=== PATIENT | female | born 1995 | race African-American/Black ===

== ENCOUNTER 2018-04-30 12:57 | Emergency (ER) | payer MEDICAID ==
[~2018-04-30] VITALS: Ht 162.6 cm; Wt 77.6 kg
--- NOTE | 2018-04-30 13:11 | NUR ---
ED Nurse Note: Pt came in due to lower abd pain with cramping that radiates to her back x 2 days. Pt is 17 weeks . Denies any vaginal bleeding. Pt states she does not have a regular OB [place] d/t [place]. Pt is AAO x4, ambulatory with non labored breathing.
--- NOTE | 2018-04-30 13:25 | Emergency Room Report ---
History of Present Illness General Chief Complaint: Complications Source: Patient Present Illness HPI 22-year-old female presents to the emergency department complaining of 7 out of 10 in severity lower pelvic cramping pain that she describes as aching 3 days. Patient reports increase in her symptoms. Patient states that she is approximately 17 weeks . Patient reports that her last OB visit was in [facility] and they performed initial ultrasound which established IUP. Patient states that she has not followed up since. Patient is with a history of 2 previous surgical abortions. Patient reports some nausea she states that she had really severe morning sickness but those symptoms have for the most part resolved. Patient denies constipation, diarrhea, fevers, chills or dysuria. Patient denies vaginal discharge, or genital lesions/1 tender lymph nodes. Patient reports increase in urinary frequency she also states she has a history of ovarian cysts. patient denies aggravating or relieving factors she states she just took some Tylenol prior to arrival. Denies chest pain, shortness of breath, dizziness, near syncope or sudden severe headache. Allergies: Coded Allergies: No Known Allergies (Unverified , 04/30/18) Patient History Past Medical History: see triage record Past Surgical History: none Pertinent Family History: none Now: Yes : 3 Para: 0 Reviewed Nursing Documentation: PMH: Agreed; PSxH: Agreed Nursing Documentation-PMH Past Medical History: No Stated History Review of Systems All Other Systems: negative except mentioned in HPI Physical Exam Vital Signs Date Time Temp Pulse Resp B/P (MAP) Pulse Ox O2 Delivery O2 Flow Rate FiO2 04/30/18 13:01 98.2 102 16 128/89 100 Sp02 EP Interpretation: reviewed, normal General Appearance: no apparent distress, alert, GCS 15, non-toxic Head: normocephalic, atraumatic Eyes: bilateral eye normal inspection, bilateral eye PERRL ENT: hearing grossly normal, normal voice Neck: full range of motion Respiratory: lungs clear, normal breath sounds, speaking full sentences Cardiovascular #1: regular rate, rhythm Gastrointestinal: normal bowel sounds, non tender, soft, non-distended, no guarding, other - No appreciable tenderness on palpation. Rectal: deferred Genitourinary: normal inspection, no CVA tenderness Musculoskeletal: back normal, gait/station normal, normal range of motion, non- tender Neurologic: alert, oriented x3, responsive, motor strength/tone normal, sensory intact, speech normal, grossly normal Psychiatric: judgement/insight normal Skin: normal color, no rash, warm/dry, well hydrated Lymphatic: no adenopathy Medical Decision Making PA Attestation Dr. Schultz is my supervising Physician whom patient management has been discussed with. Diagnostic Impression: Primary Impression: Abdominal pain during Qualified Codes: O26.892 - Other specified related conditions, second trimester; R10.9 - Unspecified abdominal pain Additional Impressions: UTI (urinary tract infection) Qualified Codes: N30.01 - Acute cystitis with hematuria Ovarian cyst during Qualified Codes: O34.82 - Maternal care for other abnormalities of pelvic organs, second trimester; N83.209 - Unspecified ovarian cyst, unspecified side ER Course 22-year-old female presents to the emergency department complaining of 7 out of 10 in severity lower pelvic cramping pain that she describes as aching 3 days. Patient reports increase in her symptoms. Patient states that she is approximately 17 weeks . Patient reports that her last OB visit was in [facility] and they performed initial ultrasound which established IUP. Patient states that she has not followed up since. Patient is with a history of 2 previous surgical abortions. Patient reports some nausea she states that she had really severe morning sickness but those symptoms have for the most part resolved. Patient denies constipation, diarrhea, fevers, chills or dysuria. Patient denies vaginal discharge, or genital lesions/1 tender lymph nodes. Patient reports increase in urinary frequency she also states she has a history of ovarian cysts. patient denies aggravating or relieving factors she states she just took some Tylenol prior to arrival. Denies chest pain, shortness of breath, dizziness, near syncope or sudden severe headache. Ddx considered but are not limited to: ovarian cyst, UTI, Fibroid, ectopic , Fibroid, Spontaneous , Vital signs: are WNL, pt. is afebrile H&PE are most consistent with: ORDERS: -CBC: unremarkable -CMP: unremarkable -Lipase: WNL -Serum Hcg Quant: 9,430 -Pelvic US complete- normal intrauterine estimated at 17 weeks gestation. Left ovarian cyst ~4cm ---Per official radiology report- Please see report for specific details. ED INTERVENTIONS: None at this time. DISCHARGE: At this time pt. is stable for d/c to home. Will provide printed patient care instructions, and any necessary prescriptions. Care plan and follow up instructions have been discussed with the patient prior to discharge. Labs Test 04/30/18 13:09 04/30/18 13:25 Urine Color Yellow Urine Appearance Slightly cloudy Urine pH 6 (4.5-8.0) Urine Specific [place] 1.020 (1.005-1.035) Urine Protein 1+ (NEGATIVE) Urine Glucose (UA) Negative (NEGATIVE) Urine Ketones Negative (NEGATIVE) Urine Blood 1+ (NEGATIVE) Urine Nitrite Negative (NEGATIVE) Urine Bilirubin Negative (NEGATIVE) Urine Urobilinogen Normal MG/DL (0.0-1.0) Urine Leukocyte Esterase 3+ (NEGATIVE) Urine RBC 0-2 /HPF (0 - 2) Urine WBC 5-10 /HPF (0 - 2) Urine Squamous Epithelial Cells Few /LPF (NONE/OCC) Urine Bacteria Occasional /HPF (NONE) White Blood Count 11.6 K/UL (4.8-10.8) Red Blood Count 4.53 M/UL (4.20-5.40) Hemoglobin 13.0 G/DL (12.0-16.0) Hematocrit 38.9 % (37.0-47.0) Mean Corpuscular Volume 86 FL (80-99) Mean Corpuscular Hemoglobin 28.6 PG (27.0-31.0) Mean Corpuscular Hemoglobin Concent 33.3 G/DL (32.0-36.0) Red Cell Distribution Width 12.2 % (11.6-14.8) Platelet Count 185 K/UL (150-450) Mean Platelet Volume 8.5 FL (6.5-10.1) Neutrophils (%) (Auto) 82.7 % (45.0-75.0) Lymphocytes (%) (Auto) 11.2 % (20.0-45.0) Monocytes (%) (Auto) 4.6 % (1.0-10.0) Eosinophils (%) (Auto) 0.7 % (0.0-3.0) Basophils (%) (Auto) 0.8 % (0.0-2.0) Sodium Level 135 MMOL/L (136-145) Potassium Level 4.0 MMOL/L (3.5-5.1) Chloride Level 103 MMOL/L (98-107) Carbon Dioxide Level 25 MMOL/L (21-32) Anion Gap 7 mmol/L (5-15) Blood Urea Nitrogen 7 mg/dL (7-18) Creatinine 0.9 MG/DL (0.55-1.30) Estimat Glomerular Filtration Rate > 60 mL/min (>60) Glucose Level 94 MG/DL (74-106) Calcium Level 9.7 MG/DL (8.5-10.1) Total Bilirubin 0.3 MG/DL (0.2-1.0) Aspartate Amino Transf (AST/SGOT) 26 U/L (15-37) Alanine Aminotransferase (ALT/SGPT) 64 U/L (12-78) Alkaline Phosphatase 58 U/L (46-116) Total Protein 7.2 G/DL (6.4-8.2) Albumin 3.5 G/DL (3.4-5.0) Globulin 3.7 g/dL Albumin/Globulin Ratio 0.9 (1.0-2.7) Lipase 136 U/L (73-393) Human Chorionic Gonadotropin, Quant 9430 mIU/mL (1-6) CT/MRI/US Diagnostic Results CT/MRI/US Diagnostic Results : Imaging Test Ordered: OB US Impression NORMAL IUP 17 Weeks 1 day, normal movement, Left ovarian cyst. ---Per official radiology report- Please see report for specific details. Last Vital Signs Date Time Temp Pulse Resp B/P (MAP) Pulse Ox O2 Delivery O2 Flow Rate FiO2 04/30/18 13:01 98.2 102 16 128/89 100 Disposition: HOME, SELF-CARE Condition: Stable Scripts Acetaminophen* (TYLENOL EXTRA STRENGTH*) 500 Mg Tablet 500 MG ORAL Q6H, #30 TAB 0 Refills Prov: Jacquelyn Jefferson 04/30/18 Nitrofurantoin Monohyd/M-Cryst* (MACROBID 100 MG*) 100 Mg Capsule 100 MG ORAL EVERY 12 HOURS for 5 Days, #10 CAP Prov: Jacquelyn Jefferson 04/30/18 Referrals: Marty Abarca MD Patient Instructions: Ovarian Cyst, [id number], Urinary Tract Infection, Easy -to-Read Additional Instructions: Take medications as directed. Follow up with a OBGYN within 3 days, even if your symptoms have resolved. Return sooner to ED if new symptoms occur, or current symptoms become worse. - Please note that this Emergency Department Report was dictated using [employer] writer technology software, occasionally this can lead to erroneous entry secondary to interpretation by the dictation equipment. Jacquelyn Jefferson Apr 30, 2018 13:24
--- NOTE | 2018-04-30 13:27 | NUR ---
ED Nurse Note: Blood/urine sent.
--- NOTE | 2018-04-30 13:28 | NUR ---
ED Nurse Note: Pt taken to US.
[2018-04-30 13:36] LABS: APPEARANCE,URINE SLIGHTLY CLOUDY; BILIRUBIN, URINE NEGATIVE (NEGATIVE); COLOR,URINE YELLOW; GLUCOSE, URINE (UA) NEGATIVE (NEGATIVE); KETONES,URINE NEGATIVE (NEGATIVE); LEUKOCYTE ESTERASE ,URINE 3+ (NEGATIVE); NITRITE,URINE NEGATIVE (NEGATIVE); PH,URINE 6 (4.5-8.0); PROTEIN,URINE 1+ (NEGATIVE); UROBILINOGEN,URINE NORMAL MG/DL (0.0-1.0)
[2018-04-30 13:39] LABS: BASOPHILS % (AUTO) 0.8 % (0.0-2.0); EOSINOPHILS % (AUTO) 0.7 % (0.0-3.0); HEMATOCRIT 38.9 % (37.0-47.0); LYMPHOCYTES % (AUTO) 11.2 % (20.0-45.0); MEAN CORPUSCULAR VOLUME 86 FL (80-99); MONOCYTES % (AUTO) 4.6 % (1.0-10.0); NEUTROPHILS % (AUTO) 82.7 % (45.0-75.0); PLATELET COUNT 185 K/UL (150-450); RED BLOOD COUNT 4.53 M/UL (4.20-5.40); RED CELL DISTRIBUTION WIDTH 12.2 % (11.6-14.8); WHITE BLOOD COUNT 11.6 K/UL (4.8-10.8)
--- NOTE | 2018-04-30 13:40 | NUR ---
HAND-OFF: Report given to Bette DE LOS SANTOS.
[2018-04-30 14:04] LABS: ANION GAP 7 mmol/L (5-15); BLOOD UREA NITROGEN 7 mg/dL (7-18); CALCIUM 9.7 MG/DL (8.5-10.1); CARBON DIOXIDE 25 MMOL/L (21-32); CHLORIDE 103 MMOL/L (98-107); CREATININE 0.9 MG/DL (0.55-1.30)
[2018-04-30 14:09] LABS: ALANINE AMINOTRANSFERASE 64 U/L (12-78); ALBUMIN 3.5 G/DL (3.4-5.0); ALBUMIN/GLOBULIN RATIO 0.9 (1.0-2.7); ALKALINE PHOSPHATASE 58 U/L (46-116); ASPARTATE AMINO TRANSFERASE 26 U/L (15-37); BILIRUBIN,TOTAL 0.3 MG/DL (0.2-1.0); SODIUM 135 MMOL/L (136-145)
--- NOTE | 2018-04-30 14:25 | NUR ---
ED Nurse Note: Pt back from US.
--- NOTE | 2018-04-30 15:10 | Diagnostic Imaging Report ---
Indication: Abdominal pain Technique: Grayscale and duplex Doppler imaging of the pelvis performed utilizing a transabdominal scan and endovaginal scan. Comparison: None Findings: Emergency OB ultrasound performed in a limited fashion. Single living IUP demonstrated gestational age estimated at 17 weeks one day based on sonographic criteria. Presentation is currently breech. Active motion noted. The cervix is closed measures 3.7 cm in length. Amniotic fluid is within normal limits with a LUPE of 15.7 cm. Placenta is anterior. There is no placenta previa or evidence of placental abruption or bleed. anatomy was assessed and no obvious abnormalities identified though full complement of a anatomy not demonstrated on this study. Suggest follow-up in this regard. measurements were as follows: Biparietal diameter 3.59 cm, 17 weeks Head circumference 13.25 cm, 16 weeks 6 days Abdominal circumference 10.9 cm, 16 weeks 6 days. Femur length 2.15 cm, 16 weeks 3 days. There is a simple fairly large left maternal ovarian cyst demonstrated which is likely a corpus luteum cyst measures approximately 4.2 x 2 cm. The right ovary is normal in appearance. Both ovaries show dopplerable blood flow. IMPRESSION: Single viable gestation 17 weeks one day. No acute findings identified. Note: A negative ultrasound evaluation does not insure well-being or positive outcome for the . monitoring including a nonstress test may be needed and clinical evaluation by [facility] is highly recommended.
[2018-04-30] MEDS ORDERED: NITROFURANTOIN100 M2 ORAL (15:14)
[2018-04-30] MEDS ORDERED: TYLENOL EXTRA500 MG ORAL (15:14)
[2018-04-30 15:22] VITALS: BP 125/74
--- NOTE | 2018-04-30 15:23 | NUR ---
ED Nurse Note: Discharge instructions given to pt. Answered all questions. Verbalized understanding. No acute distress noted. ID band and IVsite removed. Left ER w/ all belongings and w/ a steady gait.
== END 2018-04-30 15:24 | disposition home or self-care (01) ==
LOC: EMR 14:10
DX: O26.892 Other specified pregnancy related conditions, second trimester (principal); R10.9 Unspecified abdominal pain; Z3A.17 17 weeks gestation of pregnancy; O23.42 Unspecified infection of urinary tract in pregnancy, second trimester; O34.82 Maternal care for other abnormalities of pelvic organs, second trimester; N83.202 Unspecified ovarian cyst, left side
CPT/HCPCS: 36415; 76805; 80053; 81003; 83690; 84702; 85025; 99284